=== PATIENT | male | born 2000 | race Caucasian/White ===

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

== ENCOUNTER 2020-07-26 00:57 | Emergency (ER) | payer OTHER ==
[~2020-07-26 00:57] MED LIST: CELEBREX200 MG PO; KEFLEX CAP 500500 MG PO
[2020-07-26] MEDS ORDERED: LODINE CAP 300300 MG PO (01:54)
[2020-07-26] MEDS ORDERED: HYDROCODON-ACE1 EAC4 PO (01:59)
== END 2020-07-26 02:15 | disposition home or self-care (01) ==
LOC: ER1 00:57
DX: G89.18 Other acute postprocedural pain (principal); M79.642 Pain in left hand; Z89.012 Acquired absence of left thumb; Z98.890 Other specified postprocedural states
CPT/HCPCS: 99282

== ENCOUNTER → 2021-10-07 | Outpatient (CLI) | payer OTHER ==
[~2021-10-07] MED LIST changes: +HYDROCODON-ACE1 EAC4 PO; +LODINE CAP 300300 MG PO
== END ==
LOC: EROP 17:05
DX: A51.2 Primary syphilis of other sites (principal)
CPT/HCPCS: J0561